=== PATIENT | female | born 1990 | race Caucasian/White ===

== ENCOUNTER 2023-10-08 18:23 | Observation (INO) | payer BC, SELFPAY ==
[2023-10-08 18:24] VITALS: BP 153/93; PULSE 86; RESP 16; TEMP 36.4; O2SAT 98; BMI 42.0
--- NOTE | 2023-10-08 18:39 | EDS_ITS ---
HPI History of Present Illness Chief Complaint: Numb/Ting Detail of Chief Complaint: Numbness Informant: patient Narrative Narrative: Patient presents to the emergency department complaint of numbness that started a week ago and it starts in the upper abdomen and goes all the way down to both feet. She denies any significant weakness in her legs although they feel different so she is not sure if that was the numbness. She still able to ambulate. Also complains of some numbness in her fingertips of both hands. Went to a chiropractor because of this today and was told that he would not adjust her because he was worried about possibly a mass or tumor on the spinal cord causing the symptoms. Patient denies recent illness. Several months ago she had optic neuritis of the right eye and was told to follow-up with a neurologist which she never did. No family history of MS. Patient denies any new medications. She does take omeprazole. PFS PFS Medical History no medical history Home Medications ?Medication ?Instructions ?Recorded ?Last Taken ?Type ibuprofen-diphenhydramine citrate 2 cap PO QHS 10/08/23 Unknown History 200 mg-38 mg tablet (Advil PM) omeprazole 20 mg capsule,delayed 20 mg PO DAILY 10/08/23 Unknown History release Allergy/AdvReac Type Severity Reaction Status Date / Time No Known Allergies Allergy Verified 10/08/23 18:26 Surgical History no surgical history Social History Smoking Status: Never smoker ROS ROS ED Review of Systems ROS Unobtainable: other Constitutional Constitutional ED: Reports lethargy; Denies chills, fever(s), sweats or weight loss Eyes Eyes: Denies blurry vision, change in vision or diplopia ENT ENT ED: Denies rhinorrhea or sore throat Cardiovascular Cardiovascular: Denies chest pain, orthopnea or racing heartbeat Respiratory/Chest Respiratory/Chest: Denies cough, dyspnea, dyspnea on exertion, orthopnea or sputum Gastrointestinal Gastrointestinal: Denies abdominal pain, diarrhea, nausea or vomiting Genitourinary Genitourinary ED: Denies dysuria, hematuria or urinary frequency Musculoskeletal Musculoskeletal: Denies arthralgias, back pain, myalgias or neck pain Integumentary Denies abscess, Abrasions or rash Neurologic Neurologic: Reports paresthesias; Denies headache(s) or weakness Psychiatric Psychiatric: Denies anxiety, depression or suicidal thoughts Endocrine Endocrinology: Denies polydipsia, polyphagia or polyuria Hematologic/Lymphatic Hematologic/Lymphatic: Denies easy bleeding, easy bruising or lymphadenopathy Allergic/Immunologic Allergic/Immunologic ED: Denies mouth swelling, tongue swelling or urticaria EXAM Physical Exam Const Vital Signs: 10/08/23 18:24 10/08/23 20:24 10/08/23 21:18 Temperature 97.6 F L 98.2 F Temperature Source Temporal Pulse Rate 86 62 Respiratory Rate 16 18 18 Blood Pressure 153/93 H 129/80 H Blood Pressure Mean 113 96 Pulse Ox 98 98 Oxygen Delivery Method Room Air Positive well nourished and well developed General Appearance ED: well developed and NAD HEENT Reports TM's clear and moist mucous membranes normocephalic and atraumatic; Negative for trauma or tenderness Tympanic Membrane ED: Yes TM's clear Eyes PERRL and EOMs intact bilaterally General Eye ED: Negative for pale conjunctiva or scleral icterus Neck no lymphadenopathy, supple and no JVD General: Negative for tenderness Chest Wall inspection of chest normal and palpation of chest normal Chest: Negative for tenderness Resp normal respiratory effort and clear to auscultation bilaterally Effort and Inspection: Negative for respiratory distress or pain with movement Auscultation: Negative for rhonchi, wheezes or diminished lung sounds Cardio regular rate, regular rhythm, S1 normal heart sound, S2 normal heart sound and no murmurs Peripheral Pulses: pulses 2+ throughout GI normal to inspection, nondistended, normoactive bowel sounds, soft to palpation, non-tender, non-distended and no masses Back/Spine no CVA tenderness and no thoracic nor lumbar tenderness Extremity normal to inspection General Extremety ED: Negative for edema General Extremity: Negative for edema Neuro oriented x3, CN's II-XII intact bilaterally, no sensory deficits noted and gait normal Neuro Narrative: Decreased sensation from upper abdomen down to feet. Normal strength in the upper and lower extremities. Deep tendon reflexes plus 2 out of 4 bilaterally at the bicep, tricep, brachioradialis as well as patella and Achilles. She has normal L5 extension bilaterally. Sensorium / Orientation: awake, alert, oriented to person, oriented to place and oriented to time Motor Exam: strength 5/5 throughout and strength abnormal Psych mental status grossly normal Skin no rashes or lesions noted and no wounds MDM MDM MDM Narrative Medical decision making narrative: Patient presents with complaint of paresthesias in the fingertips as well as in the abdomen down to her toes. Symptoms ongoing for a week. No recent illness. The differential would be mass versus transverse myelitis or other abnormality of spinal cord. I do not have MRI available tonight. Clinically she looks well. IV line established. CBC with differential obtained showed white count of 13.4 with hemoglobin 15 and platelet count of 280. Chemistries unremarkable. Magnesium normal. I did do CT of the brain without contrast that was unremarkable. CT of the C-spine with IV contrast and thoracic spine obtained was unremarkable. Discussed results with patient. This point felt she should have an MRI to evaluate further. She will likely need a neurology consultation. Discussed case with hospitalist who will evaluate patient for admission. Lab Data Attestation: I reviewed the patient's lab results. Labs: Laboratory Results - last 24 hr 10/08/23 18:54 WBC 13.4 H RBC 4.77 Hgb 15.0 Hct 42.2 MCV 88.5 MCH 31.4 MCHC 35.5 RDW Std Deviation 38.9 RDW Coeff of Alexandre 12.0 Plt Count 280 MPV 10.0 Immature Gran % (Auto) 0.300 Neut % (Auto) 73.2 H Lymph % (Auto) 19.0 Ada % (Auto) 5.6 Eos % (Auto) 1.5 Baso % (Auto) 0.4 Absolute Neuts (auto) 9.8 H Absolute Lymphs (auto) 2.55 Nucleated RBC % 0 Sodium 137 Potassium 3.4 L Chloride 107 Carbon Dioxide 22.0 Anion Gap 8 BUN 9 Creatinine 0.95 Estim Creat Clear Calc 96.35 Est GFR (MDRD) Af Amer 88 Est GFR (MDRD) Non-Af 73 BUN/Creatinine Ratio 9.5 L Glucose 92 Calcium 9.3 Magnesium 2.1 Radiography Diagnostic Testing: Clinical Impression(s) from Imaging Studies Brain CT 10/08/23 19:12 IMPRESSION: No acute intracranial abnormality. Electronically Signed: Daniel Hughes MD at 20:15 EDT , Cervical Spine CT 10/08/23 19:12 IMPRESSION: No evidence of acute fracture or spondylolisthesis. Electronically Signed: Daniel Hughes MD at 20:16 EDT , Thoracic Spine CT 10/08/23 19:12 IMPRESSION: No evidence of thoracic spinal fracture or spondylolisthesis. Electronically Signed: Daniel Hughes MD at 20:17 EDT , Discharge Plan Triage Chief Complaint: Numb/Ting ED Provider: Kate Ramos Dx/Rx/DC Orders Clinical Impression: Paresthesias Prescriptions: No Action omeprazole 20 mg capsule,delayed release(DR/EC) 20 mg PO DAILY Advil PM 200-38 mg tablet 2 cap PO QHS Primary Care Provider: Care Physician,No Primary Referrals: Care Physician,No Primary [Primary Care Provider] - Print Language: Belarusian Disposition Disposition: Acute Care Hospital [facility]
--- NOTE | 2023-10-08 19:12 | CT_ITS ---
EXAMINATION : Head CT w/out contrast HISTORY : paraesthesias COMPARISON : None. TECHNIQUE : Multiple contiguous axial images were obtained from the skull base to the vertex without intravenous contrast. A radiation dose optimization technique was used for this scan. FINDINGS : The ventricles and sulci are normal in size. There is no evidence for acute intracranial hemorrhage, mass effect, or midline shift. There is no extra-axial fluid collection. There is normal gottlieb-white differentiation, without CT evidence of acute ischemia or infarct. The skull base and calvarium are unremarkable. The orbits are unremarkable. The paranasal sinuses are clear. The mastoid air cells are well-aerated. The soft tissues are unremarkable. CT/Brain/Head without Contrast IMPRESSION: No acute intracranial abnormality. Electronically Signed: Daniel Hughes MD at 20:15 EDT ,
--- NOTE | 2023-10-08 19:12 | CT_ITS ---
INDICATION: paraesthesias EXAMINATION/TECHNIQUE: CT Spine Cervical W/ Contrast Injection COMPARISON: None. FINDINGS: VERTEBRAE: Preserved vertebral body height. No fracture. No spondylolisthesis. Preservation of the normal cervical lordosis. No significant facet arthropathy. DISCS: Disc spaces are maintained. NECK SOFT TISSUES: No prevertebral soft tissue widening. LUNG APICES: Clear. CT/Spine Cervical WITH Contrast IMPRESSION: No evidence of acute fracture or spondylolisthesis. Electronically Signed: Danile Hughes MD at 20:16 EDT ,
--- NOTE | 2023-10-08 19:12 | CT_ITS ---
INDICATION: paraesthesias EXAMINATION/TECHNIQUE: CT Spine Thoracic W/ Contrast Injection COMPARISON: none FINDINGS: VERTEBRAE: Preserved vertebral body height. No fracture. No spondylolisthesis. Preservation of the normal thoracic kyphosis. No significant facet arthropathy. DISCS: Disc spaces are maintained. INCLUDED CHEST/ABDOMEN: No acute abnormalities. CT/Spine Thoracic WITH Contrast IMPRESSION: No evidence of thoracic spinal fracture or spondylolisthesis. Electronically Signed: Daniel Hughes MD at 20:17 EDT ,
[2023-10-08 19:21] LABS: Absolute Lymphocyte Count 2.55 X10^3/uL (0.83-4.51); Absolute Neutrophil Count 9.8 X10^3/uL (2.0-7.7); Basophil# 0.05 X10^3/uL; Basophil% 0.4 % (0-1); Eosinophils% 1.5 % (0-5); Hematocrit 42.2 % (37-47); Lymphocyte # 2.55 X10^3/ul (0.83-4.51); Mean Corp Hgb Conc 35.5 g/dL (32-36); Mean Corpuscular Hgb 31.4 pg (27.0-32.0); Mean Corpuscular Volume 88.5 fL (81-99); Monocyte# 0.75 X10^3/uL; Monocyte% 5.6 % (0-10); NRBC Flagged by Analyzer 0 % (0-5); Neutrophil # 9.81 X10^3/uL (2.7-7.7); Neutrophil % 73.2 % (47-70); Platelet Count 280 K/mm3 (150-450); RBC Distribution Width SD 38.9 fl (35.1-43.9); Red Blood Count 4.77 M/mm3 (4.2-5.4); White Blood Count 13.4 K/mm3 (4.4-11.0)
[2023-10-08 19:37] LABS: Anion Gap 8 (5-15); BUN 9 mg/dL (7-18); BUN/Creat Ratio 9.5 RATIO (10-20); Calcium,Total 9.3 mg/dL (8.5-10.1); Chloride 107 mmol/L (98-107); Creatinine, Serum 0.95 mg/dL (0.55-1.02); EST Glomerular Filtration Rate 73 mL/min (>60); Est Glom Filt Rate - Afr Amer 88 mL/min (>60); Estimated Creatinine Clearance 96.35 ml/min; Glucose 92 mg/dL (74-106); Magnesium 2.1 mg/dL (1.6-2.6); Potassium 3.4 mmol/L (3.5-5.1); Sodium Level 137 mmol/L (136-145)
[2023-10-08 20:24] VITALS: RESP 18
[2023-10-08 21:18] VITALS: BP 129/80; PULSE 62; RESP 18; TEMP 36.8; O2SAT 98
--- NOTE | 2023-10-08 21:21 | HP.PCM.HOS_ITS ---
HPI - General General Date of Admission: 10/08/23 Date of Service: 10/08/23 Chief Complaint: BL stomach downward paresthesias as well as distal finger tip paresthesias. HPI Narrative The patient is a 33 y/o F w/ PMHx: Hx former cigarette tobacco use->vaping nicotine use, Hx Optic Neuritis reportedly of the right eye several months prior with recommended follow-up with neurology unfortunately which was not performed, GERD, Morbid Obesity who presents to the [facility] ED on 10/08/23 with history of paresthesias specifically numbness that started 1 week prior to the upper abdomen and extends all the way down to both feet with no associated focal weakness although she reports that they feel different but she still able to ambulate in addition some mild paresthesias to the fingertips in both hands with chiropractic evaluation on day of presentation with adjustment deferred at that time secondary to concerns about possible mass/tumor or spinal cord injury prompting referral to ED for evaluation. Patient notes that several months prior she initially had onset of right bilateral upper quadrant blurriness and bilateral lower quadrant complete blackness of the field of vision and did see the [facility] at that time and was diagnosed with neuritis she reports and recommended to follow-up with neurology which unfortunately she did not but she notes that over 1 to 2-week. It slowly completely normalized and has not returned since. Patient denies any issues with urination or defecation and strength that she notes is completely normal. She is never had anything like this occur previously. She denies any recent alteration to her activity or any injuries or falls.Workup in the ED included T97.6, heart rate 86, BP 153/93, respiratory rate 16, 98% on room air, CBC with WC 13.4, 115, platelet 280 with left shift, BMP with potassium 3.4 otherwise not marked appearing, magnesium 2.1, CT brain with no acute intracranial findings, CT cervical spine with no acute fracture or spondylolisthesis, CT thoracic spine with no evidence of any thoracic spinal fracture or spondylolisthesis. [facility] Medical History (Updated 10/08/23 @ 21:[address] Linda Macario MD) Former tobacco use Nicotine vapor product user Hx of optic neuritis GERD (gastroesophageal reflux disease) Morbid obesity Medical History no medical history Home Medications ?Medication ?Instructions ?Recorded ?Last Taken ?Type ibuprofen-diphenhydramine citrate 2 cap PO QHS 10/08/23 Unknown History 200 mg-38 mg tablet (Advil PM) omeprazole 20 mg capsule,delayed 20 mg PO DAILY 10/08/23 Unknown History release Allergy/AdvReac Type Severity Reaction Status Date / Time No Known Allergies Allergy Verified 10/08/23 18:26 Family History (Updated 10/08/23 @ 21:[address] Linda Macario MD) Mother No problems noted. Father Lung cancer Tobacco user Surgical History (Updated 10/08/23 @ 21:[address] Linda Macario MD) History of dental surgery Surgical History no surgical history Social History (Updated 10/08/23 @ 21:[address] Linda Macario MD) household members: spouse Smoking Status: Former smoker Electronic Cigarette Use: with nicotine how long ago did patient quit smoking: Quit cigarette tobacco use 02/2023, smoked 1/2 ppd since her 20s->vaping. alcohol intake: never substance use type: does not use ROS ROS Narrative Admission Review of Systems: CONSTITUTIONAL: No weight loss, fever, chills, weakness or fatigue. HEENT: + History of remote vision changes to the right eye that have since completely resolved. Eyes: No recent acute noted visual loss, blurred vision, double vision or yellow sclerae. Ears, Nose, Throat: No hearing loss, sneezing, congestion, runny nose or sore throat. SKIN: No rash or itching, lesions, wounds. CARDIOVASCULAR: No chest pain, chest pressure or chest discomfort, palpitations, edema, orthopnea, syncopal events. RESPIRATORY: No shortness of breath, cough or sputum, wheezing, hemoptysis. GASTROINTESTINAL: No anorexia, nausea, vomiting or diarrhea, abdominal pain, melena, BRBPR. GENITOURINARY: No dysuria, frequency, urgency or retention. NEUROLOGICAL: + Numbness beneath her breasts circumferential down to bilateral lower extremities completely as well as decreased sensation/numbness just at the fingertips on both hands including all fingers. No headache, dizziness, syncope, paralysis, ataxia, numbness or tingling in the extremities, focal weakness, change in bowel or bladder control, seizure. MUSCULOSKELETAL: No muscle, back pain, joint pain or stiffness. HEMATOLOGIC: No anemia, bleeding or bruising. LYMPHATICS: No enlarged nodes. No history of splenectomy. PSYCHIATRIC: No history of depression or anxiety. ENDOCRINOLOGIC: No reports of sweating, cold or heat intolerance. No polyuria or polydipsia. ALLERGIES: No history of asthma, hives, eczema or rhinitis. Vital Signs Vital Signs Vital Signs: 10/08/23 18:24 10/08/23 20:24 10/08/23 21:18 Temperature 97.6 F L 98.2 F Temperature Source Temporal Pulse Rate 86 62 Respiratory Rate 16 18 18 Blood Pressure 153/93 H 129/80 H Blood Pressure Mean 113 96 Pulse Ox 98 98 Oxygen Delivery Method Room Air Weight Weight: 230 lb Body Mass Index (BMI) 42.0 Physical Exam Narrative Physical Examination: General: Awake, alert, oriented x 3 and cooperative, seated upright in ED bed in no apparent distress. Skin: Normal color, normal turgor, no icterus, no cyanosis. HEENT: AT/NC, EOMI, PERRLA, MMM, no carotid bruits or JVD noted. Lungs: CTA bilaterally, moderate effort, mild decrease BL bases, no rales, ronchi or wheezing. Heart: Regular rate and rhythm; no gallop, rub audible. Abdomen: Soft, morbidly obese, NTTP, ND, distant normal BS, no appreciated HSM. Extremities: No cyanosis, clubbing, or edema. Neurological: Patient awake, alert, oriented as noted, cognitive function intact; pupils equally reactive to light and accommodation, cranial nerves grossly normal, moving all 4 extremities, no focal deficits, strength preserved, subjective sensation decreased beneath the breast circumferential around the thorax extending completely downward including bilateral lower extremities and also to the bilateral distal tips of the fingers. Psychiatric: Affect appears normal, no acute evidence of depressive or anxiety feelings. Results Lab / Micro Data 10/08/23 18:54 10/08/23 18:54 Labs: Laboratory Results - last 24 hr 10/08/23 18:54: WBC 13.4 H, RBC 4.77, Hgb 15.0, Hct 42.2, MCV 88.5, MCH 31.4, MCHC 35.5, RDW Std Deviation 38.9, RDW Coeff of Alexandre 12.0, Plt Count 280, MPV 10.0, Immature Gran % (Auto) 0.300, Neut % (Auto) 73.2 H, Lymph % (Auto) 19.0, [place] % (Auto) 5.6, Eos % (Auto) 1.5, Baso % (Auto) 0.4, Absolute Neuts (auto) 9.8 H, Absolute Lymphs (auto) 2.55, Nucleated RBC % 0, Sodium 137, Potassium 3.4 L, Chloride 107, Carbon Dioxide 22.0, Anion Gap 8, BUN 9, Creatinine 0.95, Estim Creat Clear Calc 96.35, Est GFR (MDRD) Af Amer 88, Est GFR (MDRD) Non-Af 73, B UN/Creatinine Ratio 9.5 L, Glucose 92, Calcium 9.3, Magnesium 2.1 Imaging Radiology Impression Brain CT 10/08/23 19:12 IMPRESSION: No acute intracranial abnormality. Electronically Signed: Daniel Hughes MD at 20:15 EDT , Cervical Spine CT 10/08/23 19:12 IMPRESSION: No evidence of acute fracture or spondylolisthesis. Electronically Signed: Daniel Hughes MD at 20:16 EDT Reading Location ID and State: [email or web address] / [place] Tel , Service support , Thoracic Spine CT 10/08/23 19:12 IMPRESSION: No evidence of thoracic spinal fracture or spondylolisthesis. Electronically Signed: Daniel Hughes MD at 20:17 EDT , Assessment & Plan Assessment/Plan (1) Paresthesias: PLAN: Plan The patient is a 33 y/o F w/ PMHx: Hx former cigarette tobacco use->vaping nicotine use, Hx Optic Neuritis reportedly of the right eye several months prior with recommended follow-up with neurology unfortunately which was not performed, GERD, Morbid Obesity who presents to the [facility] ED on 10/08/23 with history of paresthesias specifically numbness that started 1 week prior to the upper abdomen and extends all the way down to both feet with no associated focal weakness although she reports that they feel different but she still able to ambulate in addition some mild paresthesias to the fingertips in both hands with chiropractic evaluation on day of presentation with adjustment deferred at that time secondary to concerns about possible mass/tumor or spinal cord injury prompting referral to ED for evaluation. #1. Atypical mid abdomen->BL lower extremity and distal fingertip paresthesias of unclear etiology with previous history of reported optic neuritis of the right eye of unclear etiology but concern for possible underlying MS versus transverse myelitis: Will admit to PCU, will obtain MRI Brain, Cervical->lumbar spine with and without contrast as initial imaging but will certainly defer to neurology input for altered imaging recommendations if necessary, neuro checks, PT/OT assessment. Will maintain on fall precautions. Mag, vitamin B12, folic acid, TSH, FLP, HgbA1c, inflammatory markers including CRP and ESR also requested. Request Neurology consultation. Records from the [facility] of [place] requested. #2. Elevated BP without hypertensive diagnosis: BP initially mildly elevated above goal upon presentation, improved without treatment following, will continue to monitor and add regimen if necessary, as needed IV hydralazine in the interim. #3. Leukocytosis, unclear etiology: Admission CBC with WBC to 13.4 with left shift, unclear etiology, will judiciously hydrate and repeat CBC in the a.m., CRP and ESR requested. #4. Hypokalemia: Admission K+ 3.4, magnesium obtained per ED 2.1, supplementation given, repeat level in AM. #5. Morbid Obesity: Weight loss and lifestyle changes encouraged. #6. GERD: We will continue patient on PPI. #7. Former cigarette tobacco abuse-->vaping: Encouraged cessation, inpatient consultation per RT, NR if desired. #8. DVT prophylaxis: Lovenox. Charges/Coding Visit Charges Inpatient E&M: 37777 Init Hosp L3
[2023-10-08 22:17] LABS: Erythrocyte Sedimentation Rate 15 mm/hr (0-30)
[2023-10-08 22:20] VITALS: BMI 43.5
[2023-10-08 22:25] VITALS: BP 138/94; PULSE 68; RESP 18; TEMP 36.7; O2SAT 97
[2023-10-08] MEDS: 0.9% Normal Saline (1000mL) 1,000 ML 100 ML IV (22:32)
[2023-10-08] MEDS: Enoxaparin 40 MG/0.4 ML Syringe SC (22:55)
[2023-10-08] MEDS: Potassium Chloride Oral Tablet 20 MEQ 40 MEQ PO (22:55)
[2023-10-09 00:47] VITALS: O2SAT 97
[2023-10-09 03:05] VITALS: BP 114/72; PULSE 65; RESP 18; TEMP 36.7; O2SAT 100
[2023-10-09 04:15] VITALS: BMI 43.7
[2023-10-09 06:11] LABS: Absolute Lymphocyte Count 2.99 X10^3/uL (0.83-4.51); Absolute Neutrophil Count 5.7 X10^3/uL (2.0-7.7); Basophil# 0.05 X10^3/uL; Basophil% 0.5 % (0-1); Eosinophil# 0.16 X10^3/uL; Eosinophils% 1.7 % (0-5); Hematocrit 37.5 % (37-47); Hemoglobin 13.1 g/dL (12.0-15.0); Lymphocyte # 2.99 X10^3/ul (0.83-4.51); Mean Corp Hgb Conc 34.9 g/dL (32-36); Mean Corpuscular Hgb 31.5 pg (27.0-32.0); Mean Corpuscular Volume 90.1 fL (81-99); Mean Platelet Vol. 10.3 fl (6.2-12.0); Monocyte# 0.66 X10^3/uL; Monocyte% 6.9 % (0-10); NRBC Flagged by Analyzer 0 % (0-5); Neutrophil # 5.74 X10^3/uL (2.7-7.7); Neutrophil % 59.6 % (47-70); Platelet Count 248 K/mm3 (150-450); RBC Distribution Width CV 11.9 % (11.6-14.6); RBC Distribution Width SD 39.4 fl (35.1-43.9); Red Blood Count 4.16 M/mm3 (4.2-5.4); White Blood Count 9.6 K/mm3 (4.4-11.0)
[2023-10-09 07:16] LABS: ALB/GLOB Ratio 0.8 RATIO (0.9-2.4); AST(SGOT) 17 U/L (15-37); Alanine Aminotransfer ALT/SGPT 23 U/L (13-56); Albumin, Serum 3.2 g/dL (3.2-5.0); Alkaline Phosphatase 82 U/L (45-117); Anion Gap 7 (5-15); BUN 9 mg/dL (7-18); BUN/Creat Ratio 10.4 RATIO (10-20); Calcium,Total 8.5 mg/dL (8.5-10.1); Chloride 112 mmol/L (98-107); Creatinine, Serum 0.87 mg/dL (0.55-1.02); EST Glomerular Filtration Rate 80 mL/min (>60); Est Glom Filt Rate - Afr Amer 97 mL/min (>60); Estimated Creatinine Clearance 107.72 ml/min; Globulin 3.8 g/dL (2.2-4.2); Glucose 93 mg/dL (74-106); Potassium 4.1 mmol/L (3.5-5.1); Sodium Level 139 mmol/L (136-145); Thyroid Stim Hormone (TSH) 4.82 uIU/mL (0.358-3.74)
[2023-10-09 07:38] VITALS: O2SAT 99
[2023-10-09 07:46] LABS: Hemoglobin A1c 4.6 % (3.8-5.6)
--- NOTE | 2023-10-09 08:00 | MRI_ITS ---
STUDY: MRI CERVICAL SPINE WITH AND WITHOUT CONTRAST REASON FOR EXAM: Female, 33 years old. ? TM TECHNIQUE: Standardized fat and water weighted pulse sequences were obtained in the sagittal and axial following administration of IV 20ml Clariscan. COMPARISON: None FINDINGS: Normal foramen magnum and brainstem-cervical cord junction. Normal craniovertebral junction. Normal anterior atlantoaxial articulation. Normal odontoid process. Straightening of the C-spine curvature. Normal vertebral bodies and posterior osseous elements. C2-3: Normal endplates. Normal disc height, signal and morphology. Normal central canal and intervertebral neural foramina. C3-4: Normal endplates. Normal disc height, signal and morphology. Normal central canal and intervertebral neural foramina. C4-5: Normal endplates. Normal disc height, signal and morphology. Normal central canal and intervertebral neural foramina. C5-6: Normal endplates. Normal disc height, signal and morphology. Normal central canal and intervertebral neural foramina. C6-7: Normal endplates. Normal disc height, signal and morphology. Normal central canal and intervertebral neural foramina. C7-T1: Normal endplates. Normal disc height, signal and morphology. Normal central canal and intervertebral neural foramina. Prominent midline enhancing lesion in the dorsal half of the cervical spinal cord at the C4 vertebral body level. This is faintly visible on T2 sagittal and axial views. There are no other enhancing lesions of the cervical spinal cord. Normal upper thoracic spinal cord. Normal included portions of the midline brainstem and cerebellum. Normal visualized soft tissue structures. MRI/Spine Cervical W/WO Contrast IMPRESSION: 1. Solitary enhancing intramedullary signal intensity in the midline dorsal aspect of the cervical spinal cord at C4 vertebral body level. This is for suspicious active enhancing MS plaque rather than transverse myelitis. 2. No MRI evidence of cervical extruded disc fragment, disc protrusion, spinal stenosis or cervical nerve root displacement. Electronically Signed: Tam Christensen MD at 13:44 EDT ,
--- NOTE | 2023-10-09 08:00 | MRI_ITS ---
EXAM: MR HEAD WITHOUT AND WITH INTRAVENOUS CONTRAST CLINICAL INDICATION: Paresthesias, ? MS TECHNIQUE: Multiplanar and multisequence MR images of the brain were obtained without and with intravenous contrast. COMPARISON: CT brain 10/08/2023 FINDINGS: BRAIN AND EXTRA-AXIAL SPACES: Small focus of increased T2 signal intensity within the periventricular white matter of the left frontal lobe compatible with MS plaque. The brain signal intensity is otherwise normal. No restricted diffusion to suggest acute ischemia. Ventricles are normal in size and configuration. Posterior fossa is normal. Basilar cisterns are normal. No abnormal contrast enhancement. SELLA: Normal. Normal sella turcica, pituitary gland, infundibular stalk, optic chiasm and hypothalamus. AUDITORY SYSTEM: Normal. The internal auditory canals are patent. BONES/JOINTS: Intact calvarium. SINUSES: Unremarkable as visualized. Clear. MASTOID AIR CELLS: Unremarkable as visualized. Clear. ORBITS: Unremarkable as visualized. Both globes, extraocular muscles, optic nerves and retrobulbar fat appear unremarkable. VASCULATURE: Unremarkable as visualized. Normal flow voids in the major intracranial circulation. MRI/Brain W/WO Contrast IMPRESSION: Left frontal lobe periventricular white matter lesion compatible with MS plaque. Electronically Signed: Sean Potter MD at 15:43 EDT ,
--- NOTE | 2023-10-09 08:00 | MRI_ITS ---
STUDY: MRI THORACIC SPINE WITH AND WITHOUT CONTRAST REASON FOR EXAM: Female, 33 years old. Bilateral paresthesias from the waist down, numbness in the fingers, optic the right is in the right eye x2 months. MS versus transverse myelitis. TECHNIQUE: 20 mL of IV Clariscan was administered for the contrast portion of the examination. COMPARISON: None. FINDINGS: Normal kyphosis of the thoracic spine. There is no substantial scoliosis. T1-2, T2-3, T3-4, T4-5, T5-6, T6-7, T7-8, T8-9, T9-10, T10-11, T11-12: Normal endplates. Normal disc hydration, heights and morphology of the corresponding intervertebral discs. Normal central canal and intervertebral neural foramina at the corresponding levels. Normal visualized thoracic cord. Normal conus medullaris that terminates at the L1-L2 disc space level. The soft tissue structures are unremarkable. There is no enhancing abnormality. MRI/Spine Thoracic W/WO Contrast IMPRESSION: 1. No MRI evidence of MS plaques or transverse myelitis of the thoracic spinal cord. 2. Normal MRI of the thoracic spine with and without contrast. Electronically Signed: Tam Christensen MD at 13:30 EDT ,
--- NOTE | 2023-10-09 08:00 | MRI_ITS ---
STUDY: MRI LUMBAR SPINE WITH AND WITHOUT CONTRAST REASON FOR EXAM: Female, 33 years old. ? TM TECHNIQUE: Standardized fat and water weighted pulse sequences were obtained in the sagittal and axial planes. IV 20ml Clariscan was administered for the contrast portion of the examination. COMPARISON: None FINDINGS: T12-L1: Normal endplates. Normal disc height, hydration and morphology. Normal bilateral facet joints. Normal central canal and bilateral lateral recesses. Normal bilateral intervertebral neural foramina. Normal lumbar lordosis. There is no substantial scoliosis. Normal conus medullaris that terminates at the L1-L2 disc space level. L1-2: Normal endplates. Normal disc height, hydration and morphology. Normal bilateral facet joints. Normal central canal and bilateral lateral recesses. Normal bilateral intervertebral neural foramina. L2-3: Normal endplates. Normal disc height, hydration and morphology. Normal bilateral facet joints. Normal central canal and bilateral lateral recesses. Normal bilateral intervertebral neural foramina. L3-4: Normal endplates. Normal disc height, hydration and morphology. Normal bilateral facet joints. Normal central canal and bilateral lateral recesses. Normal bilateral intervertebral neural foramina. L4-5: Normal endplates. Normal disc height, hydration and morphology. Normal bilateral facet joints. Normal central canal and bilateral lateral recesses. Normal bilateral intervertebral neural foramina. L5-S1: Normal endplates. Normal disc height, hydration and morphology. Normal bilateral facet joints. Normal central canal and bilateral lateral recesses. Normal bilateral intervertebral neural foramina. Normal visualized sacral ala. Normal visualized paraspinous soft tissue structures. MRI/Spine Lumbar W/WO Contrast IMPRESSION: Normal enhanced and unenhanced MR examination of the lumbar spine. Electronically Signed: Tam Christensen MD at 13:32 EDT Reading Location ID and State: [id number] , Service support ,
[2023-10-09 08:45] LABS: Vitamin B12 571 pg/mL (211-911)
[2023-10-09 09:05] VITALS: BP 145/99; PULSE 80; RESP 18; TEMP 36.3; O2SAT 100
--- NOTE | 2023-10-09 13:12 | NEURO.CONS ---
Assessment and Plan: Neuro Assessment/Plan RADHA RENAE is a 33 F with a previous dx of Optic Neuritis (untreated), being evaluated by Teleneurology for bilateral lower body paresthesias. MRI Neuro-axis completed but not yet read: on my preliminary review I do suspect she has a T2 hyperintensity in the cervical cord. In the context of a previous optic neuritis dx, a white matter lesion in the cord raises considerable concern for MS or NMO. Will await radiology review, but we likely will need LP. In the meantime, I do recommend drawing blood labs for MS mimics. Will see this patient again tomorrow. Diagnosis: white matter disease, transverse myelitis Plan: - awaiting official radiology read - likely will need lumbar puncture - check serum B12, Lyme, HIV, syphilis, NEY with titer I personally attended this patient and spent a total time of 48 minutes evaluating this patient including clinical assessment, review of chart, medical history imaging, and determining appropriate treatment and workup. Cole Burch MD Report Clerk OS Teleneurology HPI Consult Data Date of Consult: 10/09/23 HPI Narrative HPI Narrative: RADHA RENAE, is a 33 F with h/o optic neuritis who presents for bilateral paresthesias starting below the breasts. Diagnosed with optic neuritis last year by eye doctor. No treatment. Referral to neurology but not seen. Symptoms improved with time. She went to chiropractor this week with paresthesias below breasts and down, suspecting a pinched nerve. He was concerned and recommended presentation to hospital. Does endorse decreased sensation in feet: can feel the floor, can feel the shower but it's different. No falling, dropping things, problems with speaking or thinking. No other such episodes. No family h/o MS or other neurological disease. [facility] Medical History (Updated 10/08/23 @ 21:[address] Linda Macario MD) Former tobacco use Nicotine vapor product user Hx of optic neuritis GERD (gastroesophageal reflux disease) Morbid obesity Medical History no medical history Home Medications ?Medication ?Instructions ?Recorded ?Last Taken ?Type ibuprofen-diphenhydramine citrate 2 cap PO QHS 10/08/23 Unknown History 200 mg-38 mg tablet (Advil PM) omeprazole 20 mg capsule,delayed 20 mg PO DAILY 10/08/23 Unknown History release Allergy/AdvReac Type Severity Reaction Status Date / Time No Known Allergies Allergy Verified 10/08/23 18:26 Family History (Updated 10/08/23 @ 21:[address] Linda Macario MD) Mother No problems noted. Father Lung cancer Tobacco user Surgical History (Updated 10/08/23 @ 21:[address] Linda Macario MD) History of dental surgery Surgical History no surgical history Social History (Updated 10/08/23 @ 21:[address] Linda Macario MD) household members: spouse Smoking Status: Current every day smoker tobacco type: e-cigarettes Electronic Cigarette Use: with nicotine how long ago did patient quit smoking: Quit cigarette tobacco use 02/2023, smoked 1/2 ppd since her 20s->vaping. alcohol intake: never substance use type: does not use Vital Signs Vital Signs Vital Signs: 10/08/23 18:24 10/08/23 20:24 10/08/23 21:18 Temperature 97.6 F L 98.2 F Temperature Source Temporal Pulse Rate 86 62 Pulse Strength Respiratory Rate 16 18 18 Respiratory Effort Respiratory Depth Respiratory Pattern Blood Pressure 153/93 H 129/80 H Blood Pressure Mean 113 96 Blood Pressure Source Blood Pressure Position Blood Pressure Location Pulse Ox 98 98 Oxygen Delivery Method Room Air 10/08/23 22:25 10/08/23 23:19 10/09/23 00:47 Temperature 98.1 F Temperature Source Oral Pulse Rate 68 Pulse Strength Respiratory Rate 18 Respiratory Effort Normal Non-Labored Respiratory Depth Normal Respiratory Pattern Normal Blood Pressure 138/94 H Blood Pressure Mean 108 Blood Pressure Source Monitor Blood Pressure Position Sitting Blood Pressure Location Left Arm Pulse Ox 97 97 Oxygen Delivery Method Room Air Room Air Room Air 10/09/23 03:05 10/09/23 07:38 10/09/23 07:47 Temperature 98.0 F Temperature Source Oral Pulse Rate 65 Pulse Strength Normal (2+) Respiratory Rate 18 Respiratory Effort Respiratory Depth Respiratory Pattern Blood Pressure 114/72 Blood Pressure Mean 86 Blood Pressure Source Monitor Blood Pressure Position Semi-Fowlers Blood Pressure Location Left Arm Pulse Ox 100 99 Oxygen Delivery Method Room Air Room Air 10/09/23 07:47 10/09/23 09:05 Temperature 97.4 F L Temperature Source Temporal Pulse Rate 80 Pulse Strength Respiratory Rate 18 Respiratory Effort Normal Non-Labored Respiratory Depth Normal Respiratory Pattern Normal Blood Pressure 145/99 H Blood Pressure Mean 114 Blood Pressure Source Monitor Blood Pressure Position Sitting Blood Pressure Location Left Arm Pulse Ox 100 Oxygen Delivery Method Room Air Room Air Weight Weight: 108.6 kg Body Mass Index (BMI) 43.7 EEG Results Procedure Details EEG Procedure Details: RADHA RENAE is a 33 year old F with a past medical history of , who presents for evaluation of Electroencephalogram on DATE at TIME Physical Exam Neuro Neuro Narrative: Exam over video with assistance of bedside RN: AOx3, able and willing historian, mood matches affect, no responding to internal stimuli, naming and repetition intact. EOMI, sensation intact and equal bilaterally in V1/2/3, eye closure and smile symmetric, hearing intact to voice, tongue protrusion midline, no buccal weakness, head rotation and shoulder shrug intact. Strength 5/5 in SA, EE, EF, supervisor tan room, HF, DF Sensation equal to light touch b/l in fingers. Equal b/l in toes though toes feel different Heel to trevino and finger to nose intact without dysmetria or tremor Transitions independently. No gross ataxia or dysequilibrium on gait. Can perform toe walk, ,heel walk. Lab / Micro Data 10/09/23 05:30 10/09/23 05:30 Labs: Laboratory Results - last 24 hr 10/08/23 18:54: WBC 13.4 H, RBC 4.77, Hgb 15.0, Hct 42.2, MCV 88.5, MCH 31.4, MCHC 35.5, RDW Std Deviation 38.9, RDW Coeff of Alexandre 12.0, Plt Count 280, MPV 10.0, Immature Gran % (Auto) 0.300, Neut % (Auto) 73.2 H, Lymph % (Auto) 19.0, [place] % (Auto) 5.6, Eos % (Auto) 1.5, Baso % (Auto) 0.4, Absolute Neuts (auto) 9.8 H, Absolute Lymphs (auto) 2.55, Nucleated RBC % 0, ESR 15, Sodium 137, Potassium 3.4 L, Chloride 107, Carbon Dioxide 22.0, Anion Gap 8, BUN 9, Creatinine 0.95, Estim Creat Clear Calc 96.35, Est GFR (MDRD) Af Amer 88, Est GFR (MDRD) Non-Af 73, BUN/Creatinine Ratio 9.5 L, Glucose 92, Calcium 9.3, Magnesium 2.1, C-React Prot Ext Range 10.40 H 10/09/23 05:30: WBC 9.6, RBC 4.16 L, Hgb 13.1, Hct 37.5, MCV 90.1, MCH 31.5, MCHC 34.9, RDW Std Deviation 39.4, RDW Coeff of Alexandre 11.9, Plt Count 248, MPV 10.3, Immature Gran % (Auto) 0.300, Neut % (Auto) 59.6, Lymph % (Auto) 31.0, [place] % (Auto) 6.9, Eos % (Auto) 1.7, Baso % (Auto) 0.5, Absolute Neuts (auto) 5.7, Absolute Lymphs (auto) 2.99, Nucleated RBC % 0, Sodium 139, Potassium 4.1, Chloride 112 H, Carbon Dioxide 20.0 L, Anion Gap 7, BUN 9, Creatinine 0.87, Estim Creat Clear Calc 107.72, Est GFR (MDRD) Af Amer 97, Est GFR (MDRD) Non-Af 80, BUN/Creatinine Ratio 10.4, Glucose 93, Hemoglobin A1c 4.6, Calcium 8.5, Total Bilirubin 0.70, AST 17, ALT 23, Alkaline Phosphatase 82, Total Protein 7.0, Albumin 3.2, Globulin 3.8, Albumin/Globulin Ratio 0.8 L, Vitamin B12 571, Folate 11.90, TSH 4.82 H Imaging Radiology Impression MRI Brain C/T/L spine completed 10/09/2023, not yet read by radiology. On my preliminary review I suspect a T2 hyperintensity in cervical cord. Brain CT 10/08/23 19:12 IMPRESSION: No acute intracranial abnormality. Electronically Signed: Daniel Hughes MD at 20:15 EDT , Cervical Spine CT 10/08/23 19:12 IMPRESSION: No evidence of acute fracture or spondylolisthesis. Electronically Signed: Daniel Hughes MD at 20:16 EDT , Thoracic Spine CT 10/08/23 19:12 IMPRESSION: No evidence of thoracic spinal fracture or spondylolisthesis. Electronically Signed: Daniel Hughes MD at 20:17 EDT , Active Medications Active Medications Active Medications: Current Medications Generic Name Dose Route Start Last Admin Trade Name Freq PRN Reason Stop Dose Admin Acetaminophen 650 mg 10/08/23 22:18 Acetaminophen 325 Mg Tablet PO Q4H PRN PRN Fever, pain 1-02/18 Al Hydroxide/Mg Hydroxide 30 ml 10/08/23 22:18 Mag Hydrox/Al Hydrox/Simeth 30 Ml Udc PO Q6H PRN PRN Gastric Burning Albuterol Sulfate 2.5 mg 10/08/23 22:18 Albuterol 2.5 Mg/3 Ml Vial.Neb. INHALATION Q2H PRN PRN Dyspnea, wheezing Enoxaparin Sodium 40 mg 10/08/23 22:18 10/08/23 22:55 Enoxaparin 40 Mg/0.4 Ml Syringe SC 40 mg BID TEMITOPE Administration Guaifenesin 20 ml 10/08/23 22:18 Guaifenesin 10 Ml Udc (200mg/10ml) PO Q4H PRN PRN COUGH Hydralazine HCl 10 mg 10/08/23 22:18 Hydralazine 20 Mg/Ml Vial IV Q4H PRN PRN SBP > 160 Protocol Sodium Chloride 250 mls @ 15 mls/hr 10/08/23 22:38 IV .[id number] PRN Additional IVPB Infusion Sodium Chloride 250 mls @ 15 mls/hr 10/08/23 22:38 IV .[id number] PRN Saline Flush Melatonin 3 mg 10/08/23 22:18 Melatonin 3 Mg Tablet PO QHS PRN PRN INSOMNIA Ondansetron HCl 4 mg 10/08/23 22:18 Ondansetron 4 Mg/2 Ml Vial IV Q8H PRN PRN NAUSEA/VOMITING Pantoprazole Sodium 20 mg 10/09/23 10:00 Pantoprazole Sodium 20 Mg Tablet PO DAILY TEMITOPE Prochlorperazine Edisylate 5 mg 10/08/23 22:18 Prochlorperazine 10 Mg/2 Ml Vial IV Q4H PRN PRN Breakthrough Nausea/Vomiting Senna/Docusate Sodium 2 tablet 10/08/23 22:18 Senna/Docusate Sodium 1 Tablet PO BID PRN PRN Constipation Sodium Chloride 10 - 40 ml 10/08/23 22:38 0.9% Saline Lock 10 Ml Syringe IV UD PRN SALINE FLUSH
[2023-10-09] MEDS: Pantoprazole Sodium 20 MG Tablet PO (13:59)
[2023-10-09] MEDS: Acetaminophen 325 MG Tablet 650 MG PO (14:01)
[2023-10-09 15:05] VITALS: BP 128/87; PULSE 66; RESP 18; TEMP 36.5; O2SAT 100
--- NOTE | 2023-10-09 15:58 | DCINST_ITS ---
Discharge Instructions Diet Discharge Diet: No restrictions Activity Discharge Activity: Return to Normal Activity Weight Bearing Status: Full weight bearing Follow Up Care Test Results: Test results from this visit will be discussed in further detail at your follow- up appointment, if applicable. Discharge Plan Admission Admit Date/Time: 10/08/23 21:22 Primary Reason for Your Visit: Probable MS Attending Provider: Hector Hackett Primary Care Provider: Care Physician,No Primary Consulting Providers: Stefan Lopes; Thomas Alvarez; Naila Allen; Reva Montoya; Twyla Merlos; Mario Mcfadden; Kusum Jha; Mason Garcia; Juan J Whitmore; Inna Ugarte; Yan Leigh; Tere Yoder; Whitley Ramirez; Scottie Hernandez; Cole Burch; Aj Mazariegos; Javier West; Cynthia Franco; Blane Moss; Linda Macario Discharge Orders/Prescriptions Prescriptions: No Action omeprazole 20 mg capsule,delayed release(DR/EC) 20 mg PO DAILY Advil PM 200-38 mg tablet 2 cap PO QHS Referrals / Follow Up: Care Physician,No Primary [Primary Care Provider] -
--- NOTE | 2023-10-09 15:58 | PCM.DC ---
Discharge Instructions Diet Discharge Diet: No restrictions Activity Discharge Activity: Return to Normal Activity Weight Bearing Status: Full weight bearing Follow Up Care Test Results: Test results from this visit will be discussed in further detail at your follow-up appointment, if applicable. Discharge Plan Admission Admit Date/Time: 10/08/23 21:22 Primary Reason for Your Visit: Probable MS Attending Provider: Hector Hcakett Primary Care Provider: Care Physician,No Primary Consulting Providers: Stefan Lopes; Thomas Alvarez; Naila Allen; Reva Montoya; Twyla Merlos; Mario Mcfadden; Kusum Jha; Mason Garcia; Juan J Whitmore; Inna Ugarte; Yan Leigh; Tere Yoder; Whitley Ramirez; Scottie Hernandez; Cole Burch; Aj Mazariegos; Javier West; Cynthia Franco; Blane Moss; Linda Macario Instructions Additional Instructions / Restrictions: Have the [facility] schedule you with U neurology-contact number [phone], fax number: [phone] You will need an appointment with Dr. Reva Montoya who specializes in MS Discharge Orders/Prescriptions Prescriptions: New prednisone 10 mg tablet 10 mg PO UD Qty: 36 0RF Rx Instructions: Take 8 tablets today, then reduce by 10 mg each day until gone Continued omeprazole 20 mg capsule,delayed release(DR/EC) 20 mg PO DAILY Advil PM 200-38 mg tablet 2 cap PO QHS Referrals / Follow Up: Ani Jeffers [Non-Staff] - See Referral Note (The [facility] will call you to schedule an appointment, if you have not heard from them by 10/13/2023, call them to make an appointment, you will need a spinal tap ordered as an outpatient) Care Physician,No Primary [Primary Care Provider] - Disposition Disposition (needs filled in before D/C Order can be placed): Home, Self Care
--- NOTE | 2023-10-09 16:08 | PCM.DC.SUM ---
Providers Date of Admission: 10/08/23 Date of Discharge: 10/09/23 Primary Care Physician: [facility] Consultations 10/08/23 22:18 Neurology [Consult: Tele-Neurology] Routine Consulting Provider: [facility] Reason for Consult: Paresthesias mid abd->BL LE, BL finger tips, ? MS EMERGENT Consult: No MD Notified: Yes Date Notified: 10/09/23 Time Notified: 04:05 Method of Notification: Answering Service Nursing Unit Staff Notify [facility] of Tele-Neurology Consult: Yes Reason For Visit: PARESTHESIAS Diagnosis Discharge Diagnosis (1) Paresthesias: Status: Acute Code(s): R20.2 - Paresthesia of skin Plan 1. Paresthesias secondary to probable MS #2 GERD Medications at Discharge Home Medications ibuprofen-diphenhydramine citrate 200 mg-38 mg tablet (Advil PM) 2 cap PO QHS 10/08/23 omeprazole 20 mg capsule,delayed release 20 mg PO DAILY 10/08/23 prednisone 10 mg tablet 10 mg PO UD #36 tabs 10/09/23 Hospital Course Operations None Procedures None Summary of Care Provided Minutes Spent on Discharge: 30 Hospital Course: This 33-year-old white female was seen in the emergency room at [facility] with complaints of paresthesias starting in the upper abdomen and extending into both feet. She denied any focal weakness. Patient has no difficulty ambulating. Patient had a history of optic neuritis of the right eye several months ago but did not follow-up with a neurologist. Lab was obtained in the ER, white blood cell count was elevated at 13.4, potassium was slightly low at 3.4. Brain CT showed no acute abnormality. Cervical spine CT showed no evidence of acute fracture or spondylolisthesis and thoracic spine CT showed no evidence of thoracic spinal fracture or spondylolisthesis. Patient was placed in observation status on PCU, she underwent an MRI with contrast of the cervical spine, thoracic spine, lumbar spine, and brain. Cervical spine and brain were remarkable for a lesion suggestive of multiple sclerosis, I talked with teleneurology who saw the patient consultation, they recommended a spinal tap but the patient felt that she could have this done as an outpatient and would rather be discharged. I made arrangements for follow-up at the [facility] in [facility] here because the patient did not have a family physician. I talked with Suzy Dee who is a nurse practitioner there at the clinic. She stated that the clinic would contact the patient for follow-up appointment. Patient understands how crucial it is to follow-up with a physician to get a spinal tap done. I also got phone number of the [facility] neurology clinic which is [phone] and it was suggested that the patient follow-up with a Dr. Reva Montoya whose specialty is MS. I discussed all this with the patient, patient's mother was also in the room at the time my examination. On 10/09/2023, patient was seen and examined: On examination she appeared in good health and spirits, she does not appear to be in any distress. Vital signs as documented. Skin warm and dry and without overt rashes. Neck without JVD, thyroid appears normal, trachea is midline, neck is supple. Lungs clear, normal air movement was noted. Heart exam notable for regular rhythm, normal sounds and absence of murmurs, rubs or gallops. Abdomen unremarkable and without evidence of organomegaly, masses, or abdominal aortic enlargement, bowel sounds are present in all 4 quadrants, no abdominal tenderness was noted. Extremities nonedematous, no cyanosis was noted, no clubbing was noted. Neuro: Cranial nerves II through XII are grossly intact, no focal motor deficits were noted, sensation to light touch and pinprick is intact, motor exam 5/5 throughout. Psych: Patient is alert and oriented x3, she does not appear anxious or depressed, she does not appear agitated. Patient was discharged home in stable condition on 10/09/2023. Weight / BMI Weight Weight: 108.6 kg Body Mass Index (BMI) 43.7 ABG / Lab / Microbiology Data 10/09/23 05:30 10/09/23 05:30 Laboratory: Laboratory Results - last 24 hr 10/08/23 18:54: WBC 13.4 H, RBC 4.77, Hgb 15.0, Hct 42.2, MCV 88.5, MCH 31.4, MCHC 35.5, RDW Std Deviation 38.9, RDW Coeff of Alexandre 12.0, Plt Count 280, MPV 10.0, Immature Gran % (Auto) 0.300, Neut % (Auto) 73.2 H, Lymph % (Auto) 19.0, [place] % (Auto) 5.6, Eos % (Auto) 1.5, Baso % (Auto) 0.4, Absolute Neuts (auto) 9.8 H, Absolute Lymphs (auto) 2.55, Nucleated RBC % 0, ESR 15, Sodium 137, Potassium 3.4 L, Chloride 107, Carbon Dioxide 22.0, Anion Gap 8, BUN 9, Creatinine 0.95, Estim Creat Clear Calc 96.35, Est GFR (MDRD) Af Amer 88, Est GFR (MDRD) Non-Af 73, BUN/Creatinine Ratio 9.5 L, Glucose 92, Calcium 9.3, Magnesium 2.1, C-React Prot Ext Range 10.40 H 10/09/23 05:30: WBC 9.6, RBC 4.16 L, Hgb 13.1, Hct 37.5, MCV 90.1, MCH 31.5, MCHC 34.9, RDW Std Deviation 39.4, RDW Coeff of Alexandre 11.9, Plt Count 248, MPV 10.3, Immature Gran % (Auto) 0.300, Neut % (Auto) 59.6, Lymph % (Auto) 31.0, [place] % (Auto) 6.9, Eos % (Auto) 1.7, Baso % (Auto) 0.5, Absolute Neuts (auto) 5.7, Absolute Lymphs (auto) 2.99, Nucleated RBC % 0, Sodium 139, Potassium 4.1, Chloride 112 H, Carbon Dioxide 20.0 L, Anion Gap 7, BUN 9, Creatinine 0.87, Estim Creat Clear Calc 107.72, Est GFR (MDRD) Af Amer 97, Est GFR (MDRD) Non-Af 80, BUN/Creatinine Ratio 10.4, Glucose 93, Hemoglobin A1c 4.6, Calcium 8.5, Total Bilirubin 0.70, AST 17, ALT 23, Alkaline Phosphatase 82, Total Protein 7.0, Albumin 3.2, Globulin 3.8, Albumin/Globulin Ratio 0.8 L, Vitamin B12 571, Folate 11.90, TSH 4.82 H Radiography Diagnostic Testing: Radiology Impression Brain CT 10/08/23 19:12 IMPRESSION: No acute intracranial abnormality. Electronically Signed: Daniel Hughes MD at 20:15 EDT , Cervical Spine CT 10/08/23 19:12 IMPRESSION: No evidence of acute fracture or spondylolisthesis. Electronically Signed: Daniel Hughes MD at 20:16 EDT , Thoracic Spine CT 10/08/23 19:12 IMPRESSION: No evidence of thoracic spinal fracture or spondylolisthesis. Electronically Signed: Daniel Hughes MD at 20:17 EDT , Brain MRI 10/09/23 08:00 IMPRESSION: Left frontal lobe periventricular white matter lesion compatible with MS plaque. Electronically Signed: Sean Potter MD at 15:43 EDT , Cervical Spine MRI 10/09/23 08:00 IMPRESSION: 1. Solitary enhancing intramedullary signal intensity in the midline dorsal aspect of the cervical spinal cord at C4 vertebral body level. This is for suspicious active enhancing MS plaque rather than transverse myelitis. 2. No MRI evidence of cervical extruded disc fragment, disc protrusion, spinal stenosis or cervical nerve root displacement. Electronically Signed: Tam Christensen MD at 13:44 EDT , Lumbar Spine MRI 10/09/23 08:00 IMPRESSION: Normal enhanced and unenhanced MR examination of the lumbar spine. Electronically Signed: Tam Christensen MD at 13:32 EDT , Thoracic Spine MRI 10/09/23 08:00 IMPRESSION: 1. No MRI evidence of MS plaques or transverse myelitis of the thoracic spinal cord. 2. Normal MRI of the thoracic spine with and without contrast. Electronically Signed: Tam Christensen MD at 13:30 EDT Reading Location ID and State: [facility] / [place] , Service support , D/C Instructions Discharge Diet: No restrictions Weight Bearing Status: Full weight bearing Meaningful Use Info Meaningful Use Meaningful Use Diagnoses (Choose all that apply): None applicable Ischemic Stroke Statin Dosing Therapy Reference: STATIN DOSE THERAPY REFERENCE: * Patients > 75 years receive moderate or high dose statin therapy. * Patients 75 years or YOUNGER should receive HIGH intensity statin dose unless contraindicated. You will be required to document reason for non-treatment if statin daily dose does not meet guidelines. HIGH DOSE STATIN THERAPY DAILY Atorvastatin > than or = to 40 mg Rosuvastatin > than or = to 20 mg Amlodipine + Atorvastatin > than or = to 2.5/40 mg Ezetimibe + Simvastatin 10/80 mg Simvastatin 80mg Discharge Plan Admission Admit Date/Time: 10/08/23 21:22 Primary Reason for Your Visit: Probable MS Attending Provider: Hector Hackett Primary Care Provider: Care Physician,No Primary Consulting Providers: Stefan Lopes; Thomas Alvarez; Naila Allen; Reva Montoya; Twyla Merlos; Mario Mcfadden; Kusum Jha; Mason Garcia; Juan J Whitmore; Inna Ugarte; Yan Leigh; Tere Yoder; Whitley Ramirez; Scottie Hernandez; Cole Burch; Aj Mazariegos; Javier West; Cynthia Franco; Blane Moss; Linda Macario Instructions Additional Instructions / Restrictions: Have the [facility] schedule you with [facility] neurology-contact number [phone], fax number: [phone] You will need an appointment with Dr. Reva Montoya who specializes in MS Discharge Orders/Prescriptions Prescriptions: New prednisone 10 mg tablet 10 mg PO UD Qty: 36 0RF Rx Instructions: Take 8 tablets today, then reduce by 10 mg each day until gone Continued omeprazole 20 mg capsule,delayed release(DR/EC) 20 mg PO DAILY Advil PM 200-38 mg tablet 2 cap PO QHS Referrals / Follow Up: Ani Jeffers [Non-Staff] - See Referral Note (The [facility] clinic will call you to schedule an appointment, if you have not heard from them by 10/13/2023, call them to make an appointment, you will need a spinal tap ordered as an outpatient) Care Physician,No Primary [Primary Care Provider] - Disposition Disposition (needs filled in before D/C Order can be placed): Home, Self Care Charges/Coding Visit Charges Inpatient E&M: 87802 Disch Hosp
[2023-10-09 16:13] VITALS: BP 128/87; PULSE 66; RESP 18; TEMP 36.5; O2SAT 100
[2023-10-09 18:12] LABS: HIV - WCH Non-Reactive (Nonreactive); Vitamin B12 614 pg/mL (211-911)
[2023-10-11 12:09] LABS: Lyme Scn Total Ab w/Rflx Negative (Negative)
[2023-10-13 13:07] LABS: ANTINUCLEAR ANTIBODIES DIRECT Negative (Negative)
[2023-10-13 16:09] LABS: Treponema palladium Ab (FTA) Non Reactive (Non Reactive)
== END 2023-10-09 16:08 | disposition home or self-care (01) ==
LOC: ED 21:22 → PCU 10-09 07:10
PROVIDERS: Admitting Provider Family Medicine; Emergency Provider Emergency Medicine; Visit Provider Internal Medicine
DX: R20.2 Paresthesia of skin (principal); E66.01 Morbid (severe) obesity due to excess calories; Z68.41 Body mass index [BMI] 40.0-44.9, adult; F17.290 Nicotine dependence, other tobacco product, uncomplicated; R20.0 Anesthesia of skin; K21.9 Gastro-esophageal reflux disease without esophagitis; E87.6 Hypokalemia; R03.0 Elevated blood-pressure reading, without diagnosis of hypertension
CPT/HCPCS: 36415; 70450; 70553; 72126; 72129; 72156; 72157; 72158; 80048; 80053; 82607; 82746; 83036; 83735; 84443; 85025; 85652; 86038; 86140; 86225; 86235; 86618; 86703; 86780; 96360; 96361; 96372; 97161; 99221; 99284; A9575; J7030; Q9967; A4216; G0378

== ENCOUNTER → 2023-11-05 | Outpatient (CLI) | payer BC, SELFPAY ==
[2023-11-05 09:55] VITALS: BP 130/78; PULSE 73; RESP 16; TEMP 36.8; O2SAT 97; BMI 41.6
[2023-11-05] MEDS: Lidocaine 2% (5ml sdv) 5 ML VIAL.MPF INFILT (10:25)
[2023-11-05 10:45] VITALS: BP 122/72; PULSE 54; RESP 18; O2SAT 100
--- NOTE | 2023-11-05 10:57 | PCM.OP.PRO ---
Procedure Report Date of Procedure: 11/05/23 Assessment & Plan Assessment/Plan (1) Abnormal findings on diagnostic imaging of other specified body structures: PLAN: PROCEDURE: Fluoroscopic guided Lumbar Puncture. ORDERING PROVIDER: Dr. Lj Hernandez CLINICAL INDICATION: Female, 33 years old. Lesions on cervical MRI with concern for MS. PROVIDER: MANDA Zuñiga MEDICATIONS: 2% lidocaine administered subcutaneously for local anesthesia ACCESS SITE: Lower posterior back. NEEDLE: 20-gauge spinal needle. SPECIMEN: Approximately 14 mL clear colored CSF fluid. COMPLICATIONS: None immediate. FLUOROSCOPY TIME (if supplied): 152 seconds. 57.7 mGy The risks, benefits, and alternatives to the procedure were explained to the patient. The specific risks of bleeding, infection, and neurovascular injury were detailed and accepted. Witnessed informed consent was obtained. The patient was placed on the fluoroscopic table in the prone position. The level for needle entry was determined and marked. The overlying skin was cleaned and prepped in the usual sterile fashion. 2% lidocaine was administered subcutaneously for local anesthesia. Under fluoroscopic guidance a 20-gauge spinal needle was advanced. The thecal sac was entered at the L 3-L 4 vertebral level. The inner stylet was removed. There was spontaneous flow of clear CSF fluid. The patient was placed in a reversed Trendelenburg position. Approximately 14 mL of cerebrospinal fluid was collected using gravity. The specimen was collected and submitted to the laboratory for further evaluation. The needle was withdrawn. Hemostasis was achieved and a sterile dressing placed. The patient tolerated the procedure well without any immediate complications. The patient was placed supine for nursing observation in the holding bay. IMPRESSION: Successful fluoroscopic-guided lumbar puncture. Procedures Radiology Radiology Xray Procedures: [id number] Lumbar Puncture Dx Multi Select Codes Radiology Rad Xray Procedures: [id number] Fluoroscopic guidance for needle placement
[2023-11-05 11:05] LABS: Pathologist Review May follow
[2023-11-05 11:27] LABS: Glucose Spinal Fluid 54 mg/dL (40-75)
[2023-11-05 11:50] VITALS: BP 124/70; BP 130/78; PULSE 60; RESP 16; TEMP 36.6; O2SAT 100
[2023-11-05 12:22] LABS: Lymphocytes,CSF 92 % (40 - 80); Monocytes,CSF 6 % (15 - 45); Neutrophils,CSF 2 % (0 - 6)
[2023-11-06 10:18] LABS: Appearance CSF (character) CLEAR (Clear); Auto B Fluid Analyzer BKGD Ct COUNTS W/IN LIMITS (W/IN LIMITS); CSF Color COLORLESS (Colorless); Tested Tube # 4
[2023-11-06 10:19] LABS: RBC Count, Spinal Fluid 1 /mm-3 (None seen); White Count, CSF 12 /mm-3 (0 - 5)
[2023-11-06 14:24] LABS: Body Fluid QC Type(s) BF1Q,BF2Q
[2023-11-12 12:09] LABS: CSF Albumin 13 mg/dL (7-29); CSF IgG Index 1.8 (0.0-0.7); CSF:Serum Albumin Index 3 (0-8); IgG Serum 1209 mg/dL (586-1602); IgG Synthesis Rate, CSF 21.5 mg/day (-9.9 TO +3.3); IgG/Alb Ratio, CSF 0.54 (0.00-0.25); Myelin Basic Protein, MBP 3.1 ng/mL (0.0-3.7)
== END | disposition home or self-care (01) ==
PROVIDERS: PCP Nurse Practitioner Family; Referring Provider Family Medicine; Visit Provider Family Medicine
DX: R93.89 Abnormal findings on diagnostic imaging of other specified body structures (principal); H46.9 Unspecified optic neuritis
CPT/HCPCS: 62328; 82040; 82042; 82784; 82945; 83873; 84157; 87070; 87205; 89050; 89051

== ENCOUNTER → 2023-11-07 | Outpatient (CLI) | payer BC, SELFPAY ==
[2023-11-07 11:37] LABS: Absolute Lymphocyte Count 2.07 X10^3/uL (0.83-4.51); Absolute Neutrophil Count 3.4 X10^3/uL (2.0-7.7); Basophil# 0.04 X10^3/uL; Basophil% 0.7 % (0-1); Eosinophil# 0.12 X10^3/uL; Hematocrit 39.8 % (37-47); Lymphocyte # 2.07 X10^3/ul (0.83-4.51); Lymphocyte % 35.1 % (19-41); Mean Corp Hgb Conc 35.2 g/dL (32-36); Mean Corpuscular Hgb 31.5 pg (27.0-32.0); Mean Corpuscular Volume 89.4 fL (81-99); Mean Platelet Vol. 9.9 fl (6.2-12.0); Monocyte# 0.29 X10^3/uL; Monocyte% 4.9 % (0-10); NRBC Flagged by Analyzer 0 % (0-5); Neutrophil # 3.35 X10^3/uL (2.7-7.7); Platelet Count 285 K/mm3 (150-450); RBC Distribution Width CV 11.9 % (11.6-14.6); Red Blood Count 4.45 M/mm3 (4.2-5.4); White Blood Count 5.9 K/mm3 (4.4-11.0)
[2023-11-07 12:41] LABS: ALB/GLOB Ratio 0.9 RATIO (0.9-2.4); AST(SGOT) 14 U/L (15-37); Alanine Aminotransfer ALT/SGPT 30 U/L (13-56); Albumin, Serum 3.7 g/dL (3.2-5.0); Alkaline Phosphatase 89 U/L (45-117); Anion Gap 6 (5-15); BUN 12 mg/dL (7-18); BUN/Creat Ratio 12.4 RATIO (10-20); Calcium,Total 9.2 mg/dL (8.5-10.1); Chloride 109 mmol/L (98-107); Cholesterol 196 mg/dL (200); Creatinine, Serum 0.96 mg/dL (0.55-1.02); EST Glomerular Filtration Rate 71 mL/min (>60); Est Glom Filt Rate - Afr Amer 86 mL/min (>60); Glucose 93 mg/dL (74-106); High Density Lipoprotein 44 mg/dL; Potassium 3.8 mmol/L (3.5-5.1); Protein, Total 7.7 g/dL (6.4-8.2); Sodium Level 139 mmol/L (136-145); T4 Free Direct 1.06 ng/dL (0.76-1.46); T4 Total, Thyroxin 11.8 ug/dL (4.8-13.9); Thyroid Stim Hormone (TSH) 2.08 uIU/mL (0.358-3.74); Triglycerides 159 mg/dL; Very Low Density Lipoprotein 32 mg/dL (5-40)
[2023-11-10 16:09] LABS: Thyroglobulin Antibody < 1.0 IU/mL (0.0-0.9); Thyroid Peroxidase AB < 9 IU/mL (0-34); Thyroxin Bind Glob (TBG) 23 ug/mL (13-39)
== END | disposition home or self-care (01) ==
LOC: BFHLAB 10:18 → LAB 10:52
PROVIDERS: PCP Nurse Practitioner Family; Referring Provider Nurse Practitioner Family; Visit Provider Nurse Practitioner Family
DX: Z00.01 Encounter for general adult medical examination with abnormal findings (principal); R79.89 Other specified abnormal findings of blood chemistry
CPT/HCPCS: 36415; 80053; 80061; 84436; 84439; 84442; 84443; 84481; 85025; 86376; 86800

== ENCOUNTER → 2024-03-31 | Outpatient (CLI) | payer BC, SELFPAY ==
[2024-03-31 17:24] LABS: AST(SGOT) 20 U/L (15-37); Alanine Aminotransfer ALT/SGPT 26 U/L (13-56); Albumin, Serum 3.8 g/dL (3.2-5.0); Alkaline Phosphatase 82 U/L (45-117); Globulin 3.6 g/dL (2.2-4.2); Protein, Total 7.4 g/dL (6.4-8.2)
== END | disposition home or self-care (01) ==
LOC: LAB 16:37
PROVIDERS: PCP Nurse Practitioner Family; Referring Provider Psychiatry & Neurology Neurology; Visit Provider Psychiatry & Neurology Neurology
DX: G35 Multiple sclerosis (principal)
CPT/HCPCS: 36415; 80076

== ENCOUNTER → 2024-05-31 | Outpatient (CLI) | payer BC, SELFPAY ==
[2024-05-31 16:58] LABS: Absolute Lymphocyte Count 2.59 X10^3/uL (0.83-4.51); Absolute Neutrophil Count 4.3 X10^3/uL (2.0-7.7); Basophil# 0.04 X10^3/uL; Basophil% 0.5 % (0-1); Eosinophils% 2.6 % (0-5); Hematocrit 39.8 % (37-47); Hemoglobin 13.7 g/dL (12.0-15.0); Lymphocyte # 2.59 X10^3/ul (0.83-4.51); Lymphocyte % 33.7 % (19-41); Mean Corp Hgb Conc 34.4 g/dL (32-36); Mean Corpuscular Hgb 30.2 pg (27.0-32.0); Mean Corpuscular Volume 87.9 fL (81-99); Mean Platelet Vol. 10.1 fl (6.2-12.0); Monocyte# 0.59 X10^3/uL; Monocyte% 7.7 % (0-10); NRBC Flagged by Analyzer 0 % (0-5); Neutrophil # 4.25 X10^3/uL (2.7-7.7); Neutrophil % 55.2 % (47-70); Platelet Count 265 K/mm3 (150-450); RBC Distribution Width CV 12.2 % (11.6-14.6); RBC Distribution Width SD 39.2 fl (35.1-43.9); Red Blood Count 4.53 M/mm3 (4.2-5.4); White Blood Count 7.7 K/mm3 (4.4-11.0)
[2024-05-31 17:16] LABS: AST(SGOT) 14 U/L (15-37); Alanine Aminotransfer ALT/SGPT 27 U/L (13-56); Albumin, Serum 3.8 g/dL (3.2-5.0); Alkaline Phosphatase 76 U/L (45-117); Bilirubin, Direct 0.11 mg/dL (0.00-0.30); Globulin 4.1 g/dL (2.2-4.2); Protein, Total 7.9 g/dL (6.4-8.2)
[2024-06-02 04:07] LABS: Immunoglobulin A 195 mg/dL (87-352); Immunoglobulin G 1434 mg/dL (586-1602); Immunoglobulin M 51 mg/dL (26-217)
== END | disposition home or self-care (01) ==
PROVIDERS: PCP Nurse Practitioner Family; Referring Provider Psychiatry & Neurology Neurology; Visit Provider Psychiatry & Neurology Neurology
DX: G35 Multiple sclerosis (principal)
CPT/HCPCS: 36415; 80076; 82784; 85025

== ENCOUNTER → 2024-06-28 | Outpatient (CLI) | payer BC, SELFPAY ==
--- NOTE | 2024-06-28 07:52 | MRI_ITS ---
PROCEDURE: MRI of the brain without and with intravenous contrast. REASON FOR EXAM: Multiple sclerosis. Throbbing head pain. TECHNIQUE: Multiplanar, multisequence MRI images of the brain were obtained without and with intravenous contrast. 20 cc of yes IV contrast was administered. COMPARISON: Noncontrast MRI brain 10/09/2023 FINDINGS: Bones of the calvarium are intact. The included upper cervical spinal cord is unremarkable. Orbits, sella, and parasellar structures are unremarkable. Major basilar intracranial flow voids are present. Small amount of fluid signal in the right mastoid air cells is similar. Left mastoid air cells are clear. There are mild areas of mucosal thickening involving the ethmoid and sphenoid sinuses, as well as the inferior maxillary sinuses. No paranasal sinus air-fluid levels. Extracranial soft tissues show no specific abnormality. No areas of restricted diffusion. On postcontrast images, no areas of abnormal brain parenchymal enhancement. There is a single 6 mm white matter lesion involving the left anterior corpus callosum image 15 of the sagittal FLAIR sequence. Stir no other significant focal white matter lesions on the FLAIR sequence. MRI/Brain W/WO Contrast IMPRESSION: No acute intracranial abnormality or abnormal brain parenchymal enhancement. A single 6 mm FLAIR hyperintense lesion of the left anterior corpus callosum is not significantly changed. No other significant focal white matter lesions are demonstrated. Mild paranasal sinus disease as above. Reading Location: [facility]
== END | disposition home or self-care (01) ==
PROVIDERS: PCP Nurse Practitioner Family; Referring Provider Psychiatry & Neurology Neurology; Visit Provider Psychiatry & Neurology Neurology
DX: G35 Multiple sclerosis (principal)
CPT/HCPCS: 70553; A9575

== ENCOUNTER → 2024-07-02 | Outpatient (CLI) | payer BC, SELFPAY ==
--- NOTE | 2024-07-02 10:34 | MRI_ITS ---
PROCEDURE: MRI thoracic spine without and with IV contrast REASON FOR EXAM: Multiple sclerosis TECHNIQUE: Multisequence multiplanar MR images of the thoracic spine were obtained before and after the administration of intravenous contrast. Imaging sequences were performed to best display suspected pathology. COMPARISON: 10/09/2023 FINDINGS: Spinal cord is of normal caliber, contour and signal intensity. No pathologic enhancement. No focal disc abnormality, spinal stenosis or foraminal narrowing. Vertebral body heights are preserved. Alignment is intact. Negative for fracture or marrow replacement. No paraspinal mass. MRI/Spine Thoracic W/WO Contrast IMPRESSION: Negative thoracic spine MRI. Reading Location: [facility]
--- NOTE | 2024-07-02 10:34 | MRI_ITS ---
PROCEDURE: MRI cervical spine without and with IV contrast REASON FOR EXAM: Multiple sclerosis TECHNIQUE: Multisequence multiplanar MR images of the cervical spine were obtained before and after the administration of intravenous contrast. Imaging sequences were performed to best displaced suspected pathology. COMPARISON: 10/09/2023 FINDINGS: Near-complete interval resolution of the hyperintense T2 cord signal at the level of C3-C4. Residual hyperintense T2 signal within the cord measures up to 4 mm in craniocaudal dimension. No new cord lesions or pathologic enhancement. Vertebral body heights are preserved. Negative for fracture or marrow replacement. Alignment is intact. No paraspinal mass. C2-3: No focal disc abnormality, spinal stenosis or foraminal narrowing. C3-4: No focal disc abnormality, spinal stenosis or foraminal narrowing. C4-5: No focal disc abnormality, spinal stenosis or foraminal narrowing. C5-6: No focal disc abnormality, spinal stenosis or foraminal narrowing. C6-7: Minimal posterior disc osteophyte complex. No significant spinal stenosis or foraminal narrowing. C7-T1: No focal disc abnormality, spinal stenosis or foraminal narrowing. MRI/Spine Cervical W/WO Contrast IMPRESSION: 1. Near complete resolution of the previous hyperintense T2 cord signal at C3-C 4. No new cord lesions or pathologic enhancement. 2. No significant spinal stenosis or foraminal narrowing. Reading Location: [facility]
== END | disposition home or self-care (01) ==
LOC: MRI 10:15
PROVIDERS: PCP Nurse Practitioner Family; Referring Provider Psychiatry & Neurology Neurology; Visit Provider Psychiatry & Neurology Neurology
DX: G35 Multiple sclerosis (principal)
CPT/HCPCS: 72156; 72157; A9575

== ENCOUNTER → 2025-01-12 | Outpatient (CLI) | payer BC, SELFPAY ==
[2025-01-12 12:31] LABS: Hematocrit 40.5 % (37-47); Hemoglobin 14.5 g/dL (12.0-15.0); Immature Granulocytes Count 0.010 X10^3/uL (0.0-0.0); Mean Corp Hgb Conc 35.8 g/dL (32-36); Mean Corpuscular Volume 88.8 fL (81-99); Mean Platelet Vol. 10.2 fl (6.2-12.0); NRBC Flagged by Analyzer 0 % (0-5); Platelet Count 274 K/mm3 (150-450); RBC Distribution Width CV 11.9 % (11.6-14.6); RBC Distribution Width SD 38.2 fl (35.1-43.9); Red Blood Count 4.56 M/mm3 (4.2-5.4); White Blood Count 7.1 K/mm3 (4.4-11.0)
[2025-01-12 13:29] LABS: AST(SGOT) 17 U/L (<=31); Alanine Aminotransfer ALT/SGPT 17 U/L (<=34); Albumin, Serum 4.3 g/dL (3.5-5.0); Alkaline Phosphatase 85 U/L (35-104); Anion Gap 11 (5-15); BUN 14 mg/dL (4-19); BUN/Creat Ratio 16.1 RATIO (10-20); Calcium,Total 9.2 mg/dL (7.6-11.0); Carbon Dioxide 22.6 mmol/L (21.0-32.0); Chloride 106 mmol/L (98-108); Cholesterol 178 mg/dL (<=200); Globulin 3.4 g/dL (2.2-4.2); Glucose 90 mg/dL (70-99); Low Density Lipoprotein Calc. 112 mg/dL; Potassium 4.3 mmol/L (3.3-5.1); Triglycerides 96 mg/dL; Very Low Density Lipoprotein 19 mg/dL (5-40); Vitamin D,25 Hydroxy 50.7 ng/mL (30-100); cholesterol:hdl ratio screen 3.78
== END | disposition home or self-care (01) ==
LOC: BFHLAB 10:08
PROVIDERS: PCP Nurse Practitioner Family; Visit Provider Nurse Practitioner Family
DX: Z00.01 Encounter for general adult medical examination with abnormal findings (principal); E55.9 Vitamin D deficiency, unspecified
CPT/HCPCS: 36415; 80053; 80061; 82306; 85025